=== PATIENT | male | born 2000 | race Caucasian/White ===

== ENCOUNTER 2022-11-04 06:38 | Day surgery (SDC) | payer OTHER ==
[~2022-11-04] VITALS: Ht 177.8 cm; Wt 72.6 kg
[2022-11-04] MEDS ORDERED: fentaNYL citrate 0.05 MG/ML VIAL ONE (07:25)
[2022-11-04] MEDS ORDERED: LIDOCAINE 2% 100 MG/5 ML UJET TP ONE (07:25)
[2022-11-04] MEDS ORDERED: KETOROLAC 30 MG/ML VIAL ONE (07:26)
[2022-11-04] MEDS ORDERED: fentaNYL citrate 0.05 MG/ML VIAL IVP ONE (08:15)
== END 2022-11-04 08:35 | disposition home or self-care (01) ==
LOC: MOR 06:38 → MMU 06:39 → MOR 08:35
PROVIDERS: ATTEND Internal Medicine Gastroenterology
DX: Z12.11 Encounter for screening for malignant neoplasm of colon (principal); K64.9 Unspecified hemorrhoids; F41.9 Anxiety disorder, unspecified; F32.A Depression, unspecified; Z20.822 Contact with and (suspected) exposure to COVID-19; Z79.899 Other long term (current) drug therapy
CPT/HCPCS: 45378; 87426; J3010; J1885